=== PATIENT | female | born 1965 | race Caucasian/White ===

== ENCOUNTER 2025-10-01 20:32 | Emergency (ER) | payer MEDICAID ==
[~2025-10-01] VITALS: Ht 144.8 cm; Wt 75.0 kg
[~2025-10-01 20:32] MED LIST: GLIP10TA17 PO; LEVO50TA8 PO; LISI20TA31 PO; MECL-299 MT; METF-414 PO; PANT40TA51 PO; SIMV-46 PO; SUMA50TA16 PO
[2025-10-01 20:39] VITALS: O2SAT 99
[2025-10-01] MEDS: KETOROLAC 15MG/ML VIAL IM ONE (22:22)
[2025-10-01] MEDS: CYCLOBENZAPRINE 10MG TABLET PO ONE (22:22)
[2025-10-01] MEDS: LIDOCAINE 5% PATCH TOP SCH (22:24)
[2025-10-01] MEDS ORDERED: NAPR-1176 MT (23:56)
[2025-10-01] MEDS ORDERED: LIDO-53 TP (23:56)
[2025-10-02] MEDS: HYDROCODONE/ACETAMINOPHEN 5/325MG TABLET PO ONE (00:38)
[2025-10-02 01:50] VITALS: BP 124/60; PULSE 56; RESP 18; TEMP 36.7; O2SAT 98
[2025-10-04] MEDS ORDERED: IBUP-2028 MT (12:58)
== END 2025-10-02 01:51 | disposition home or self-care (01) ==
LOC: ER 20:32
DX: M54.40 Lumbago with sciatica, unspecified side (principal); E11.9 Type 2 diabetes mellitus without complications; E78.00 Pure hypercholesterolemia, unspecified; I10 Essential (primary) hypertension; M19.90 Unspecified osteoarthritis, unspecified site; Z98.890 Other specified postprocedural states; Z87.19 Personal history of other diseases of the digestive system; Z79.899 Other long term (current) drug therapy; Z79.890 Hormone replacement therapy; Z79.84 Long term (current) use of oral hypoglycemic drugs; Z79.1 Long term (current) use of non-steroidal anti-inflammatories (NSAID)
CPT/HCPCS: 99284; 73562; 96372; J1885